=== PATIENT | male | born 1995 | race African-American/Black ===

== ENCOUNTER 2017-12-22 18:51 | Emergency (ER) | payer OTHER ==
[~2017-12-22] VITALS: Ht 182.9 cm; Wt 72.6 kg
[2017-12-22] MEDS ORDERED: VENTOLIN HFA18 GM INH ×2 (19:04→20:51)
[2017-12-22 19:20] VITALS: BP 136/72
[2017-12-22] MEDS ORDERED: Albuterol/Ipratropium 3ml neb HHN ONE (19:30)
[2017-12-22] MEDS ORDERED: BACTRIM DS TAB1 EAC1 ORAL (20:50)
--- NOTE | 2017-12-22 20:50 | Emergency Room Report ---
History of Present Illness General Chief Complaint: Medical Clearance Source: Patient Present Illness HPI 22-year-old male with history HIV positive and asthma brought in by [place]. The hand, complaining of difficulty breathing due to asthma exacerbation and the coughing up bloody sputum, patient denies ingestion of any drugs, smoking, alcohol ingestion. Patient denies taking any HIV medication denies being up-to- date with immunization complains of bloody sputum going on for the past few days. Denies syncope, abdominal pain, no other associated symptoms has not used his inhaler in a few days. Allergies: Coded Allergies: No Known Allergies (Unverified , 12/22/17) Patient History Past Medical History: none Past Surgical History: unable to obtain Pertinent Family History: none Immunizations: other - not up-to-date Reviewed Nursing Documentation: PMH: Agreed; PSxH: Agreed Nursing Documentation-PMH Past Medical History: No History, Except For Hx Asthma: Yes Review of Systems All Other Systems: negative except mentioned in HPI Physical Exam Vital Signs Date Time Temp Pulse Resp B/P (MAP) Pulse Ox O2 Delivery O2 Flow Rate FiO2 12/22/17 18:45 99.1 87 17 136/72 97 Room Air 12/22/17 19:33 21 Sp02 EP Interpretation: reviewed, normal General Appearance: normal inspection, well appearing, no apparent distress Head: normocephalic, atraumatic Eyes: bilateral eye normal inspection, bilateral eye PERRL ENT: normal ENT inspection, normal pharynx Neck: normal inspection, full range of motion, supple Respiratory: chest non-tender, no rhonchi, no respiratory distress, no retraction, no accessory muscle use, wheezing - Diffuse Cardiovascular #1: normal inspection, regular rate, rhythm, no murmur Gastrointestinal: normal inspection, normal bowel sounds, soft Rectal: deferred Genitourinary: normal inspection, no CVA tenderness, deferred Musculoskeletal: normal inspection, back normal, digits/nails normal Neurologic: normal inspection, alert, oriented x3, responsive Psychiatric: normal inspection, judgement/insight normal, memory normal Skin: normal inspection, normal color, no rash, warm/dry Lymphatic: normal inspection, no adenopathy Medical Decision Making PA Attestation All diagnoses and treatment plans are reviewed and discussed with my supervising physician Dr. Velasquez Diagnostic Impression: Primary Impression: Acute asthma exacerbation Additional Impressions: Sputum bloody HIV disease ER Course 22-year-old male with history HIV positive and asthma brought in by [place]. The hand, complaining of difficulty breathing due to asthma exacerbation and the coughing up bloody sputum, patient denies ingestion of any drugs, smoking, alcohol ingestion. Patient denies taking any HIV medication denies being up-to- date with immunization complains of bloody sputum going on for the past few days. Denies syncope, abdominal pain, no other associated symptoms has not used his inhaler in a few days. Ddx considered but are not limited to acute asthma exacerbation, hemoptysis, HIV , chest trauma, bacterial infection secondary to uncontrolled HIV Vital signs: are WNL, pt. is afebrile H&PE are most consistent with ashtma exacerbation, bacterial infx secondary to HIV ORDERS: nebulizer tx, CXR, Naproxen, ventolin HFA, bactrim DS ED INTERVENTIONS: nebulizer tx DISCHARGE: At this time pt. is stable for d/c to home. Will provide printed patient care instructions, and any necessary prescriptions. Care plan and follow up instructions have been discussed with the patient prior to discharge. patient also claims that he just fell outside and is complaining of minimal pain in his chest area is requesting something for pain was given naproxen. Patient to follow-up with swim coach regarding bloody sputum take the Bactrim DS for bacterial infection Chest X-Ray Diagnostic Results Chest X-Ray Diagnostic Results : Chest X-Ray Ordered: Yes # of Views/Limited/Complete: 2 View Indication: Other - hemoptysis EP Interpretation: Yes PA Xray: Interpretation reviewed, by supervising MD, and agrees with findings. Interpretation: no pneumothorax, other - diffuse infiltaretes Impression: Other - diffuse infiltrates, possible bacterial infx secondary to HIV Electronically Signed by: Rajat Nava PA-C Last Vital Signs Date Time Temp Pulse Resp B/P (MAP) Pulse Ox O2 Delivery O2 Flow Rate FiO2 12/22/17 19:42 104 16 98 Room Air 21 12/22/17 19:20 98.9 136/72 Disposition: D/C TO [facility] Condition: Stable Scripts Naproxen* (NAPROSYN*) 250 Mg Tablet 250 MG ORAL TWICE A DAY, #30 TAB 0 Refills Prov: Rajat Mandel 12/22/17 Albuterol Sulfate (VENTOLIN HFA) 18 Gm Hfa.aer.ad 2 PUFFS INH EVERY 6 HOURS, #18 GM 0 Refills Prov: Rajat Mandel 12/22/17 Trimethoprim/Sulfamethoxazole 160/800* (BACTRIM DS TABLET*) 1 Each Tablet 1 TAB ORAL TWICE A DAY for 10 Days, #20 TAB Prov: Rajat Mandel 12/22/17 Patient Instructions: Asthma, Adult, [id number], Hemoptysis, [id number] Additional Instructions: following swim coach, further imaging is needed to his positive HIV status, patient has put on antibiotics due to possible infection of the lungs post status HIV positive and hemoptysis Rajat Mandel Dec 22, 2017 20:50
[2017-12-22] MEDS ORDERED: NAPROXEN250 MG ORAL (20:56)
[2017-12-22 21:00] VITALS: BP 134/74
--- NOTE | 2017-12-23 12:15 | Diagnostic Imaging Report ---
Indication: Dyspnea Comparison: None 2 views of the chest obtained. Findings: Cardiomediastinal silhouette and pulmonary vascularity are within normal limits for age. The diaphragmatic contour is smooth and costophrenic angles are sharp. No pleural effusions are identified. The bones are unremarkable. Impression: No acute disease
== END 2017-12-22 21:00 ==
LOC: EDBD 18:51 → EMR 19:45
DX: J45.901 Unspecified asthma with (acute) exacerbation (principal); R04.2 Hemoptysis; B20 Human immunodeficiency virus [HIV] disease
CPT/HCPCS: 71046; 94640; 94664; 99284; J7620